=== PATIENT | female | born 1935 | race Caucasian/White ===

== ENCOUNTER 2024-10-26 17:50 | Emergency (ER) | payer MEDICARE, SELFPAY ==
--- OUTSIDE RECORDS SUMMARY | 2010-10-14 07:02 | XMS_ITS | Continuity of Care Document ---
Author Organization [facility] Address [address] [address] [place] [address] Phone Care Team Providers Care Shade Bander Name Role Phone Unavailable Unavailable Unavailable Advance Directives Directive Yes / No Effective Date File Name No Information Encounters Encounter Description Practice Location Reason(s) For Visit Diagnoses Date Provider Providers Copied on Encounter [facility], [address] [address], [place], [place], [id number], [place] tel:[phone] [facility] No Information No Information Family History Family Member Type Diagnosis Age At Onset No Information Payers Payer name Insurance type Covered republican ID Authoriza tion(s) No Information Social History Type Description Quantity Date Captured Comments Sex Female Smoking Status No Information Chief Complaint And Reason For Visit No Information Reason For Referral Reason For Referral No Information History Of Present Illness Encounter Date Complaint History Of Prese nt Illness No Information Functional Status Date Functional Assessmen t No Information Instructions Date Instruction Additional Infor mation No Information Assessments Type Assessment Date No Information Patient Care Teams Name Effective Dates (start - stop) Status Members No Information
--- OUTSIDE RECORDS SUMMARY | 2010-10-14 07:02 | XMS_ITS | Continuity of Care Document ---
Author Organization [facility] Address [address] [address] [place] [address] Phone Care Team Providers Care Kettle Operator Name Role Phone Unavailable Unavailable Unavailable Advance Directives Directive Yes / No Effective Date File Name No Information Encounters Encounter Description Practice Location Reason(s) For Visit Diagnoses Date Provider Providers Copied on Encounter [facility], [address] [address], [place], [place], [id number], [place] tel:[phone] [facility] No Information No Information Family History Family Member Type Diagnosis Age At Onset No Information Payers Payer name Insurance type Covered green party ID Authoriza tion(s) No Information Social History [...]
--- OUTSIDE RECORDS SUMMARY | 2024-10-26 17:52 | XMS_ITS | Encounter Summary ---
Author Organization [facility] Address [address] [facility] [place] [address] Care Team Providers Care Color Mixer Name Role Phone Shay Arteaga MD Primary Care Provider Laz Kennedy MD Primary Care Provider Encounter Details Date Type Department Care Team (Late st Contact Info) Description 12/10/2008 Office Visit-[facility] [address] [facility] [address] [place] [address] Bobby Gardner MD XXX XXX [address] [facility] [address] [place], [place] [id number] Social History Tobacco Use Types Packs/Day Years Used Date Smoking Tobacco: Never Assessed Comments Unknown Sex and Gender Information Value Date Recorded Sex Assigned at Not on file 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 DATE: 12/10/2008 KELSEY ESPANA DATE OF : 1935 AGE: [age] years old Referring Physician: SHAY ARTEAGA Referring Clinic: [facility] CURRENT DIAGNOSES 1. - Shortness of Breath, 786.05 2. - Chest Pain-unspecified, 786.50 3. Hyperlipidemia-mixed disorder, 272.4 4. - Hypertension, 401.1 5. 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 Lantus 100 units/mL, Take as Directed 2. Actos 30 mg, 1 p.o. daily 3. Glipizide 5 mg, 2 p.o. daily 4. Metformin 1000mg, 2 p.o. daily 5. Doxazosin Mesylate 8 mg, 1 p.o. daily 6. Furosemide 40 mg, 1 p.o. daily 7. Simvastatin 80 mg, 1 p.o. daily 8. Fish Oil 1000mg, 1 p.o. daily 9. Carvedilol 25mg, 1 p.o. twice daily 10. Clonidine 0.1 mg, 1 p.o. twice daily 11. Aspirin 81 mg, 1 p.o. daily 12. Fluticasone Propionate (nasal) 50 mcg/act, Take as Directed 13. multivitamin daily, 1 p.o. daily 14. Meclizine Hydrochloride 12.5 mg, Take as Directed 15. Nikko 10-20 mg, 1 p.o. daily CHIEF COMPLAINTS SOB HISTORY OF PRESENT ILLNESS Thank you for asking me to see Kelsey Espana in consultation because of her recent stress nuclear test. The patient informs me that she was seen by one of your associates because you were on vacation. Because of a question of the abnormal nuclear test the patient was arranged to have a visit with me. The patient is a 73-year-old white female who gives a history of remote heart catheterization in the early at [facility]. I have no records of the results of that angiogram butesha apparently was told there was no significant stenosis. She was sent home on the same day according to her. The patient was recently evaluated by you for preoperative clearance for some eyelid surgery. The patient underwent a nuclear stress test and accordingly your partner thought the stress test was abnormal and therefore referred the patient to me for further evaluation. Upon my review of the officialreading of the stress test, there was felt to be a fixed anterior, anteroseptal moderate sized defect with normal wall motion abnormality. It was the impression of the diplomatic interpreter that this fixed defect was probably due to breast attenuation and the study was most likely a normal study. Nevertheless, the patient was sent to me for further evaluation. The patient is a very vague historian. In trying to have her pinpoint specific answers to specific questions, she was very noncommittal. She believes she has had dyspnea on exertion for the last one to two years that has been slowly progressive. She denies any sudden change. She states that she gets short of breath after one block walking. She has also had some problems with PND. She states that she has had some vague chest pain that occursboth at rest and sometimes with exertion. When asked specifically when was the last time she had the discomfort she was unable to tell me. She believes it lasts for only a few seconds to minutes, though it is unclear. She is here with her daughter and her daughter believes that her exercise capacity has decreased in the last year or so, although there has been no acute change. Her daughter statesthat she is not aware of any chest discomfort. The patient has risk factors for coronary artery disease. She is a diabetic and has been treated for high blood pressure that has been somewhat difficult to control. She has also been treated for dyslipidemia. She, however, has been a nonsmoker. Physical exam is as listed below. 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, HTN, Diabetes, obesity, hyperlipidemia Cardiology Procedures-Noninvasive: myocardial perfusion (Nuc) Nov 2008 Left Ventricular Ejection Fraction: EF55% by nuclear study -Nov 2008 Nuclear Results: 11/21/08 a moderately sized, fixed anterior and anteroseptal defect, thought to be due to attenuationartifact SOCIAL HISTORY Alcohol Use - denies drinking; Smoking - never smoked and spot on her lung /second-hand smoke exposure; Diet - regular diet without modifications and caffeine use-1-2 per day; Lifestyle - , children and drives car; Exercise - exercise is limited due to physical disability and MENESES; Seat Belt Use - always; 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 RESPIRATORY dyspnea with exertion, frequent napping CARDIOVASCULAR palpitations, orthopnea, sleeps with 2 pillows, dizziness, edema, hyperlipidemia ABDOMINAL denies ulcer disease, hematochezia or melena. MUSCULOSKELETAL chronic low back pain NEUROLOGICAL dizziness PSYCHIATRIC denies any history of depression, substance abuse or change in cognitive functions. ENDOCRINE insulin dependent diabetes mellitus, polyuria HEMATOLOGICAL/IMMUNOLOGIC seasonal and medication allergies PHYSICAL EXAMINATION VITAL SIGNS: Blood Pressure: 161/70 Sitting, Left arm, large cuff Pulse- 72.00/min. Weight- 209.70 lbs. Height- 66.50 Temperature- .00 CONSTITUTIONAL NAD, alert and oriented SKIN warm and dry HEAD atraumatic EYES EOMI, pupils round and equal, conjunctiva normal ENT tongue midline, no perioral cyanosis NECK supple without JVD/bruit CHEST clear to ascultation without rales/rhonchi/wheezing CARDIAC RRR with I/ murmur, no lift/thrill ABDOMEN obese, soft without tenderness PERIPHERAL PULSES good DP and radials bilaterally EXTREMITIES & BACK 1+ ankle edema PSYCHIATRIC appropriate in answers. NEUROLOGICAL moves extremities equally MEDICATIONS UPDATED/STARTED TODAY: Lantus 100 units/mL, Take as Directed, 0 Actos 30 mg, 1 p.o. daily, 0 Glipizide 5 mg, 2 p.o. daily, 0 Metformin 1000mg, 2 p.o. daily, 0 Doxazosin Mesylate 8 mg, 1 p.o. daily, 0 Furosemide 40 mg, 1 p.o. daily, 0 Simvastatin 80 mg, 1 p.o. daily, 0 Fish Oil 1000mg, 1 p.o. daily, 0 Carvedilol 25mg, 1 p.o. twice daily, 0 Clonidine 0.1 mg, 1 p.o. twice daily, 0 Aspirin 81 mg, 1 p.o. daily, 0 Fluticasone Propionate (nasal) 50 mcg/act, Take as Directed, 0 multivitamin daily, 1 p.o. daily, 0 Meclizine Hydrochloride 12.5 mg, Take as Directed, 0 Nikko 10-20 mg, 1 p.o. daily, #30 MEDICATIONS REFILLED/STOPPED TODAY: Nikko 5-20 mg unsure of dosage 0 Dosage Increased ASSESSMENT/RECOMMENDATION: 1. The patient presents with what she describes as considerable dyspnea although I have no objective evidence of her exercise capacity. Her nuclear stress test suggests uniform coronary perfusion if you assume the anterior fixed defect is due to artifact. The possibility of a prior anterior myocardial infarction or balanced ischemia has not been conclusively ruled out. I did discuss with her the sensitivity and specificity of the nuclear stress test. I have explained to them why a nuclear stress test may not detect global ischemia as there would not be focal perfusion defects. Because of her symptoms I believe it would be worthwhile to do another functional test. I have requested a stress ec hocardiogram. This will allow us to definitively determine her exercise capacity and to make sure there is not balanced ischemia or a prior anterior myocardial infarction. Should the stress echocardiogram be negative, then I believe that further cardiac evaluation would not be necessary. Certainly if the stress echocardiogram shows a large amount of ischemia or suggests multivessel disease, angiography may be needed. It is certainly possible that her dyspnea on exertion is due to deconditioningrather than to coronary artery disease. 2. The patient is hypertensive and has had difficult to control hypertension. We would need to hold her beta-imelda in order to do the stress test. She has hypertension even now without holding her beta-imelda. Because of this, I have asked her to increase her Nikko from 5/20 q.d. to 10/20 q.d. 3. Because of her diabetes mellitus, aggressive control of herlipids is indicated. She should have an LDL cholesterol of less than 70, and HDL greater than 50 ifat all possible. 4. The patient has been a nonsmoker and is encouraged to continue to refrain from s moking. 5. As mentioned above, we will order the stress echocardiogram, and I will see her back to go over the results. 6. The patient did have a carotid ultrasound study. The patient and family werewondering about the carotid study. According to a preliminary report, there was felt to be less than 50% stenosis in the right internal carotid artery and a 50-69% stenosis in the left internal carotid artery. There was tortuosity of the vessel which made interpretation difficult. I did give the results to the patient and told him that this did not suggest significant disease that warrants intervention at this time. Thank you very much for allowing us to participate in the care of your patient. Should you have anyquestions about this patient or any other patient, please feel free to contact us at any time. TODAYS ORDERS 1. Return Visit 1 month 2. Treadmill Stress Echo 2 weeks Bobby Gardner M.D. documented in this encounter Plan of Treatment Not on file documented as of this encounter Visit Diagnoses Not on filedocumented in this encounter Care Teams Color Mixer Relationship Specialty Start Date End Date Shay Arteaga MD PCP - General Family Practice 11/02/11 07/17/19 [place] [address] [place] [address] PCP - General 07/18/19 documented as of this encounter
--- OUTSIDE RECORDS SUMMARY | 2024-10-26 17:52 | XMS_ITS | Clinical Summary ---
Author Organization [facility] Address [address] [place] [address] Care Team Providers Care Water Well Driller Name Role Phone Laz Walter MD Primary Care Provider Allergies Active Allergy Reactions Criticality Noted Date Comments Amoxicillin Rash Low 07/19/2019 Cephalexin 07/19/2019 Blurred vision, tight head and ears plugged Levofloxacin 07/19/2019 Blurred vision, tight head, plugged ears Gemfibrozil 07/19/2019 Penicillin G Benzathine 07/19/2019 Doesn't remember it's been so long Statins 07/19/2019 Sulfa Antibiotics 07/19/2019 Fenofibrate 07/19/2019 Medications albuterol (PROAIR HFA/PROVENTIL HFA/VENTOLIN HFA) 108 (90 Base) MCG/ACT inhaler Inhale 1-2 puffs into the lungs every 4 hours as needed for shortness of breath / dyspnea or wheezing Active amLODIPine (NORVASC) 10 MG tablet Take 10 mg by mouth daily Active aspirin 81 MG EC tablet Take 81 mg by mouth daily Active benzonatate (TESSALON) 100 MG capsule Take 100 mg by mouth 3 times daily as needed for cough Active calcium-vitami n D (OSCAL) 250-125 MG-UNIT TABS per tablet Take 1 tablet by mouth daily Active carvedilol (COREG) 25 MG tablet Take 25 mg by mouth 2 times daily (with meals) Active vitamin D3 (CHOLECALCIFER OL) 2000 units (50 mcg) tablet Take 1 tablet by mouth daily Active Nebulizers (COMP AIR COMPRESSOR NEBULIZER) MISC every 4 hours as needed Active fluocinonide (LIDEX) 0.05 % external solution Active NONFORMULARY 0.01 % Fluocinolone-Showe r cap 0.01% oil 0.1 uses Active furosemide (LASIX) 40 MG tablet Take 40 mg by mouth 2 times daily May reduce to one tablet every morning when leg swelling improves Active glipiZIDE (GLUCOTROL) 10 MG tablet Take 10 mg by mouth 2 times daily (before meals) Active ketoconazole (NIZORAL) 2 % external shampoo 2-3 times weekly. Ac tive insulin glargine (LANTUS PEN) 100 UNIT/ML pen Inject Subcutaneous every morning Inject 62-66 units subcutaneously before breakfast daily. Active lisinopril (ZESTRIL) 40 MG tablet Take 40 mg by mouth daily Active loratadine-pse udoePHEDrine (CLARITIN-D 12-HOUR) 5-120 MG 12 hr tablet Take 1 tablet by mouth daily Active LORazepam (ATIVAN) 0.5 MG tablet Take 0.5 mg by mouth daily as needed for anxiety Active meclizine (ANTIVERT) 12.5 MG tablet Take 12.5 mg by mouth daily as needed for dizziness Active metFORMIN (GLUCOPHAGE) 1000 MG tablet Take 1,000 mg by mouth 2 times daily (with meals) Active mometasone-for moterol (DULERA) 100-5 MCG/ACT inhaler Inhale 2 puffs into the lungs 2 times daily Active multivitamin w/minerals (MULTI-VITAMIN ) tablet Take 1 tablet by mouth daily Active fish oil-omega-3 fatty acids 1000 MG capsule Take 2 g by mouth daily Active sertraline (ZOLOFT) 25 MG tablet Take 25 mg by mouth daily Active simvastatin (ZOCOR) 20 MG tablet Take 20 mg by mouth At Bedtime Active traMADol (ULTRAM) 50 MG tablet Take 50 mg by mouth 3 times daily as needed for severe pain Active triamterene-HC TZ (MAXZIDE-25) 37.5-25 MG tablet Take 1 tablet by mouth daily Active acetaminophen (TYLENOL) 500 MG tabletIndicati ons:S/P ORIF (open reduction internal fixation) fracture Take 2 tablets (1,000 mg) by mouth every 6 hours as needed for mild pain 1 Bottle 0 Active senna (SENOKOT) 8.6 MG tabletIndicati ons:S/P ORIF (open reduction internal fixation) fracture Take 1 tablet by mouth 2 times daily as needed for constipation 40 tablet 0 Active Social History Tobacco Use Types Packs/Day Years Used Date Smoking Tobacco: Never Smokeless Tobacco: Never Alcohol Use Standard Drinks/Week Comments Never 0 (1 standard drink = 0.6 oz pur e alcohol) AUDIT-C Answer Date Recorded Q1: How often do you have a drink containing alc ohol? 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 Gender Identity Not on file Sexual Orientation Not on file Last Filed Vital Signs Vital Sign Reading Time Taken Comments Blood Pressure 162/80 07/20/2019 1:30 PM CDT Pulse 64 07/20/2019 11:15 AM CDT Temperature 36.1 C (96.9 F) 07/20/2019 1:30 PM CDT Respiratory Rate 18 07/20/2019 1:30 PM CDT Oxygen Saturation 97% 07/20/2019 1:30 PM CDT Inhaled Oxygen Concentration - - Weight 88.5 kg (195 lb) 07/20/2019 7:34 AM CDT Height 170.2 cm (5' 7) 07/20/2019 7:34 AM CDT Body Mass Index 30.54 07/20/2019 7:34 AM CDT Plan of Treatment Not on file Medical Devices Implanted Type Area Button Reclaimer Device Identifier Shelf Expiration Date Model / Serial / Lot Graft Bone Chips Canc 05ml Implanted:Qty: 1 on 07/20/2019 by Geoff Fulton MD at [facility] Bone/Tis judith/Biol ogic Left: Wrist MUSCULOSKELETAL HANSON 01/05/2022 [id number] / [id number] / Volar Distal Radius Plate, Intermediate 56mm Implanted:Qty: 1 on 07/20/2019 by Geoff Fulton MD at [facility] Left: Wrist GARRY [id number] / / [id number] 2020 2.7mm Locking Screw 16mm Implanted:Qty: 1 on 07/20/2019 by Geoff Fulton MD at [facility] Left: Wrist GARRY [id number] / / [id number] 2020 2.7mm Locking Screw 20mm Implanted:Qty: 4 on 07/20/2019 by Geoff Fulton MD at [facility] Left: Wrist GARRY [id number] / / [id number] 2020 2.7mm Locking Screws 22mm Implanted:Qty: 2 on 07/20/2019 by Geoff Fulton MD at [facility] Left: Wrist GARRY [id number] / / [id number] 2020 2.7mm Non-Locking Screw 14mm Implanted:Qty: 3 on 07/20/2019 by Geoff Fulton MD at [facility] Left: Wrist GARRY [id number] / / [id number] 2019 1.6 K Wire Implanted:Qty: 4 on 07/20/2019 by Geoff Fulton MD at [facility] Left: Wrist GARRY [id number] / / [id number] 2020 Explanted Type Area Button Reclaimer Device Identifier Shelf Expiration Date Model / Serial / Lot 2.7mm Non-Locking Screw 24mm Explanted:Qty: 1 on 07/20/2019 by Geoff Fulton MD at 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
--- OUTSIDE RECORDS SUMMARY | 2024-10-26 17:52 | XMS_ITS | Encounter Summary ---
Author Organization [facility] Address [address] [facility] [place] [address] Care Team Providers Care Perch Machine Inspector Name Role Phone Laz Walter MD Primary Care Provider Encounter Details Date Type Department Care Team (Late st Contact Info) Description 11/15/2019 Orders Only [facility] [address] [facility] [address] [place] [address] Alexa Manzano MD [address] 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 Gender Identity Not on file Sexual Orientation Not on file documented as of this encounter Plan of Treatment Not on file documented as of this encounter Results * EKG 12-lead, tracing only (02/05/2020 10:59 AM CDT) Interpretation ECG Click View Image link to view waveform and result RADIOLOGY RESULTS 02/05/2020 10:5 9 AM CDT us Alexa Manzano MD ECG ORDERABLES Final Result RADIOLOGY RESULTS documented in this encounter Visit Diagnoses Diagnosis Dyspnea- Primary Other dyspnea and respiratory abnormality Hypoxemia documented in this encounter Care Teams Perch Machine Inspector Relationship Specialty [place] [address] [place] [address] PCP - General 07/18/19 documented as of this encounter
--- OUTSIDE RECORDS SUMMARY | 2024-10-26 17:53 | XMS_ITS | Clinical Summary ---
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 Active CALCIUM CARBONATE/VITAMIN D3 (CALCIUM + D ORAL) Take by mouth once daily. Active cholecalciferol (VITAMIN D) 2,000 unit capsule Take 1 capsule by mouth once daily. Active aspirin enteric coated 81 mg tablet Take 1 tablet by mouth once daily with a meal. 0 02/28/20 13 Active COMP-AIR NEBULIZER COMPRESSOR INHALE EVERY 4 HOURS NEEDED 05/11/19 20 Active albuterol-ipratrop ium (DUONEB) (2.5-0.5 mg) in 3 mL NEBULIZATION solutionIndication s:COPD mixed type (HC),Bronchiectasi s, uncomplicated (HC) Inhale 3 mL via a nebulizer 4 times daily. 1 box 3 11/02/19 20 Active blood-glucose meterIndications:T ype 2 diabetes mellitus with complication, with long-term current use of insulin (HC) please dispense Glucose meter and lancets that are covered by patient's insurance per request of pharmacy. Dispense meter covered by pt ins. Preferred [employer] by insurance. E11.9 NIDDM type II - Test 2 times/day. Reason: Hypoglycemia 1 Each 04/30/19 23 Active fluticasone propion-salmeteroL (ADVAIR) 250-50 mcg/Dose diskus inhalerIndications :COPD mixed type (HC) Inhale 1 Puff by mouth two times daily. 60 Each 04/16/20 24 Active albuterol HFA (PRO-AIR; VENTOLIN; PROVENTIL) 90 mcg/actuation inhalerIndications :COPD mixed type (HC) Inhale 1-2 Puffs by mouth every 4 hours if needed for Shortness Of Breath. 1 Each 2 04/16/20 24 Active amLODIPine (NORVASC) 10 mg tabletIndications: Essential hypertension Take 1 Tablet (10 mg) by mouth once daily. 90 Tablet 3 04/16/20 24 Active blood sugar diagnostic (Blood Glucose Test) stripIndications:T ype 2 diabetes mellitus with complication, with long-term current use of insulin (HC) USE 1 STRIP TO CHECK GLUCOSE TWICE DAILY 200 Each 3 04/16/20 24 Active glipiZIDE (GLUCOTROL) 5 mg tabletIndications: Type 2 diabetes mellitus with complication, with long-term current use of insulin (HC) Take 1 Tablet (5 mg) by mouth once daily before a meal. 90 Tablet 3 04/16/20 24 Active lancetsIndications :Type 2 diabetes mellitus with complication, with long-term current use of insulin (HC) As directed two times daily. 200 Each 04/16/20 24 Active pen needle (bd insulin pen needle uf mini) 31 gauge x 3/16 (disposable insulin pen needle)Indications :Type 2 diabetes mellitus with complication, with long-term current use of insulin (HC) FOR ADMINISTERING INSULIN AT HOME ONCE DAILY. 100 Each 04/16/20 24 Active insulin glargine, U-100, (Lantus Solostar U-100 Insulin) 100 unit/mL (3 mL) penIndications:Typ e 2 diabetes mellitus with complication, with long-term current use of insulin (HC) Inject 40 units subcutaneous once daily. Product desired: LANTUS SOLOSTAR INJECT 30 TO 40 UNITS SUBCUTANEOUSLY ONCE DAILY 45 mL 3 04/16/20 24 Active hydroCHLOROthiazid e 25 mg tabletIndications: Essential hypertension Take 1 Tablet (25 mg) by mouth once daily. 90 Tablet 3 04/16/20 24 Active lisinopriL (PRINIVIL; ZESTRIL) 40 mg tabletIndications: Essential hypertension Take 1 Tablet (40 mg) by mouth once daily. 90 Tablet 3 04/16/20 24 Active metFORMIN (GLUCOPHAGE) 1,000 mg tabletIndications: Type 2 diabetes mellitus with complication, with long-term current use of insulin (HC) Take 1 Tablet (1,000 mg) by mouth two times daily with meals. 180 Tablet 3 04/16/20 24 Active sertraline (ZOLOFT) 25 mg tabletIndications: Anxiety Take 1 Tablet (25 mg) by mouth once daily. 90 Tablet 3 04/16/20 24 Active simvastatin (ZOCOR) 20 mg tabletIndications: Mixed hyperlipidemia Take 1 Tablet (20 mg) by mouth at bedtime. 90 Tablet 3 04/16/20 24 Active carvediloL (COREG) 25 mg tabletIndications: Hypertension TAKE 1 TABLET BY MOUTH TWICE DAILY WITH MEALS 180 Tablet 2 05/04/19 25 Active furosemide 20 mg tabletIndications: Bilateral lower extremity edema TAKE 1 TABLET BY MOUTH EVERY OTHER DAY 45 Tablet 09/15/19 25 Active Active Problems Problem Noted Date Diagnosed Date Depression, recurrent 02/22/2022 Aortic heart murmur 02/18/2021 Overview (02/18/2021): Mild stenosis of aortic valve on Echo 2019 ([facility]) Basal cell carcinoma 06/16/2020 Overview (12/04/2020): 06/12/20 - Nasal dorsum, BCC. Mohs done on 07/21/20. Type 2 diabetes mellitus wit h complication, with long-term current use of insulin 11/04/2019 Peripheral edema 07/09/2019 Bronchiectasis, uncomplicated 02/14/2019 Anxiety 04/21/2018 Obesity 11/02/2017 Solitary pulmonary nodule 11/02/2017 Overview (05/30/2018): Negative PET 11/2017. Diabetic peripheral neuropathy 07/26/2017 Chronic nasal congestion 02/11/2017 COPD mixed type 03/21/2016 Overview (03/21/2016): Spirometry through palletizer operator: 02/2016: FVC: FVC 50% at 3.02. FEV1 at 44% at 2.26 L Essential hypertension 06/26/2009 Hyperlipidemia 06/26/2009 Resolved Problems Problem Noted Date Diagnosed Date Resolved Date Pressure injury of right buttock, stage 2 06/22/2021 09/07/2022 Skin cancer of nose 09/27/2017 10/16/19 21 Shortness of breath 12/24/2015 04/13/20 19 CVD (cardiovascular disease) 10/07/2009 06/06/2013 Type II diabetes mellitus with complication 06/26/2009 11/04/2019 Routine health maintenance 06/26/2009 0 04/21/2018 Overview (06/26/2009): Last Breast Exam: 11/2008 Last Mammogram: 10/2008 Last Lipids: 02/2009 Last Colonoscopy: 11/1999 Encounters Date Type Department Care Team Description 10/25/[address] [id number] Laz Walter MD Refill Request (Furosemide) 09/13/[address] [address] Laz Walter MD Refill Request (Furosemide) from Last 3 Months Immunizations Immunization Administration Dates Next Due AMB Influenza, IIV4 PF (=>6 mos Flulaval,Fluzone Fluarix)(Flu Clinic Only) 01/23/2020 COVID-19 vaccine (Moderna 10 0mcg/0.5mL) PF, MDV 07/17/2021 COVID-19 vaccine (Pfizer-Bio NTech 30mcg/0.3mL) PF, MDV 01/21/2021,06/17/2020,05/27/2020 Influenza A (H1N1), Inactiva john (Age >=3 Years) 04/30/2009 Influenza, High-dose Inactivated 02/09/2016,01/16 Influenza, High-dose Quadriv alent Inactivated 01/07/2023,01/20/2022,01/21/2021 Influenza, IIV3 (Age >=3 years) 02/03/2011,01/06 Influenza, Inactivated IIV3 (Age 65+ Years) Preserv Free 02/01/2019,02/13/2018,01/06/2017 Pneumococcal Poly,23-Valent (Pneumovax) 07/18/19,11/16/2002,08/10/2000 Pneumococcal conj 13-Valent (Prevnar 13) 015 RSV, Recombinant ADJ Reconst ituted (Arexvy 120MCG/0.5mL) 01/07/2023 Td (Age >=7 Years) 11/16/2002 Tdap 11/11/2022,11/29/2012 Zoster (Shingrix-RZV, recombinant) 04/05/2022, Family History Medical History Relation Name Comments Diabetes Brother 1 Other Brother 2 alzheimers No Known Problems Brother 3 No Known Problems Brother 4 Other Father lung Other Mother old age Diabetes Sister Relation Name Status Comments Brother 1 Brother 2 Brother 3 Alive Brother 4 Alive Father (Age 67) Mother (Age 95) Sister Social History Tobacco Use Types Packs/Day Years Used Date Smoking Tobacco: Never Smokeless Tobacco: Never Tobacco Cessation:Counseling Given: Yes Alcohol Use Standard Drinks/Week Comments No 0 (1 standard drink = 0.6 oz pur e alcohol) PHQ-2 Answer Date Recorded PHQ-2 TOTAL SCORE 1 04/16/2024 Social Connections Answer Date Recorded Do you often feel lonely or isolated from those around you? 0 04/16/2024 Financial Resource Strain Answer Date R ecorded Difficulty of Paying Living Expenses 3 04/16/2024 Difficulty of Paying Living Expenses Not on file 04/16/2024 Food Insecurity Answer Date Recorded Do you worry your food will run out before you are able to buy more? 1 04/16/2024 Transportation Needs Answer Date Record ed Does lack of transportation keep you from medica l appointments? 1 04/16/2024 Does lack of transportation keep you from work, meetings or getting things that you need? 1 04/16/2024 Housing Stability Answer Date Recorded What is your housing situation today? 1 04/16/2024 Utilities Answer Date Recorded Do you have trouble paying f or utilities (for example, heat, electricity, water, phone)? 1 04/16/2024 Comments No Sex and Gender Information Value Date Recorded Sex Assigned at Not on file Legal Sex Female 7:43 AM BRANDING MACHINE TENDER Gender Identity Not on file Sexual Orientation Not on file Occupation Industry Job Start Date Job End Date retired Not on file Not on file Not on file Obstetrics History Last Filed Vital Signs Vital Sign Reading Time Taken Comments Blood Pressure 130/68 04/16/2024 10:47 AM BRANDING MACHINE TENDER Pulse 80 04/16/2024 10:07 AM BRANDING MACHINE TENDER Temperature 36.3 C (97.3 F) 04/07/2024 3:06 PM BRANDING MACHINE TENDER Respiratory Rate 18 04/07/2024 3:06 PM BRANDING MACHINE TENDER Oxygen Saturation 94% 04/07/2024 3:06 PM BRANDING MACHINE TENDER Inhaled Oxygen Concentration - - Weight 77.1 kg (170 lb) 04/16/2024 10:07 AM BRANDING MACHINE TENDER Height 170.2 cm (5' 7) 04/16/2024 10:07 AM BRANDING MACHINE TENDER Body Mass Index 26.63 04/16/2024 10:07 AM BRANDING MACHINE TENDER Plan of Treatment Health Maintenance Due Date Last Done Comments COVID-19 vaccine series ( season) 2024 01/02/2024, 01/28/2023, 01/20/2022, Additional history exists Influenza Vaccine (#1) 2024 , 02/01/2019, 02/13/2018, Additional history exists BMI (ht and wt on same day) for age 18+ 04/16/2025 04/16/2024, 02/23/2023, 02/22/2022, Additional history exists Depression screening for age 12+ 04/16/2025 04/16/2024, 02/23/2023, 02/23/2022, Additional history exists Medicare Wellness for age 65+ 04/17/2025 04/16/2024, 02/23/2023, 02/22/2022, Additional history exists Tetanus booster 11/11/2032 11/11/2022, 11/16, 11/16/2002 DEXA/DXA scan for age 65+ Completed 2016, 05/09/2014, 04/05/2011, Additional history exists Pneumococcal series for age 50+ Completed 07/17/2021, 02/03/2015, 11/16/2002, Additional history exists Zoster (shingles) series for age 50+ Completed 04/05/2022, 01/30/2022 RSV vaccine for adults or Completed 01/07/2023 Hepatitis B series for 19+ Aged Out N o longer eligible based on patient's age to complete this topic Procedures Procedure Name Priority Date/Time Associated Diagnosis Comments XR DXA BONE DENSITY 2 SITES AXIAL Routine 03/15/2017 10:44 AM BRANDING MACHINE TENDER Osteoporosis, unspecified osteoporosis type, unspecified pathological fracture presence from Last 3 Months or Most Recently Relevant to Health Maintenance Results * XR DXA BONE DENSITY 2 SITES AXIAL (03/15/2017 10:44 AM BRANDING MACHINE TENDER) Anatomical Region Laterality Modality Spine, HIPS, HIPL, HIPR Other 03/15/2017 10:4 4 AM BRANDING MACHINE TENDER Impressions 03/15/2017 1:08 PM BRANDING MACHINE TENDER IMPRESSION: 1. Normal bone mineral density of the lumbar spine. 2. Normal bone mineral density of the right and left femoral necks. RECOMMENDATIONS: Typical preventive recommendations include total daily calcium intake (diet and supplement) of 1500 mg, daily vitamin D intake of 400-800 IU, and regular weight-bearing exercise, in the appropriate clinical setting. Narrative 03/15/2017 1:08 PM BRANDING MACHINE TENDER BONE DENSITY (DEXA) 03/15/2017 10:44 AM HISTORY: Postmenopausal female with history of asthma or emphysema taking calcium. COMPARISON: 05/09/2014 and 11/09/2002. TECHNIQUE: The study was performed using DEXA in the AP lumbar spine and AP femur using a [employer] C. FINDINGS: Using DEXA, the results were reported according to T score. The T score is the standard deviation from the peak bone mass in a normal young patient. A T score of 0 to -1.0 is normal. A T score of -1.0 to -2.5 correlates with osteopenia. A T score of less than -2.5 correlates with osteoporosis. The total T-score from L1 to L4 is 0.1 compared with -0.3 in the previous study and -1.2 in the baseline study. There has been a 3.6% change in bone density since the previous study. This is a statistically significant change in bone density. The T-score for the right femoral neck is -0.2. The bone mineral density of the right femoral neck is 0.828 g/cm2. The T-score for the left femoral neck is -0.5 compared with -0.7 in the previous study and -1.6 in the baseline study. The bone mineral density of the left femoral neck is 0.789 g/cm2. Procedure Note Unknown, Doctor - 03/15/2017 BONE DENSITY (DEXA) 03/15/2017 10:44 AM HISTORY: Postmenopausal female with history of asthma or emphysema taking calcium. COMPARISON: 05/09/2014 and 11/09/2002. TECHNIQUE: The study was performed using DEXA in the AP lumbar spine and AP femur using a [employer] C. FINDINGS: Using DEXA, the results were reported according to T score. The T score is the standard deviation from the peak bone mass in a normal young patient. A T score of 0 to -1.0 is normal. A T score of -1.0 to -2.5 correlates with osteopenia. A T score of less than -2.5 correlates with osteoporosis. The total T-score from L1 to L4 is 0.1 compared with -0.3 in the previous study and -1.2 in the baseline study. There has been a 3.6% change in bone density since the previous study. This is a statistically significant change in bone density. The T-score for the right femoral neck is -0.2. The bone mineral density of the right femoral neck is 0.828 g/cm2. The T-score for the left femoral neck is -0.5 compared with -0.7 in the previous study and -1.6 in the baseline study. The bone mineral density of the left femoral neck is 0.789 g/cm2. IMPRESSION: IMPRESSION: 1. Normal bone mineral density of the lumbar spine. 2. Normal bone mineral density of the right and left femoral necks. RECOMMENDATIONS: Typical preventive recommendations include total daily calcium intake (diet and supplement) of 1500 mg, daily vitamin D intake of 400-800 IU, and regular weight-bearing exercise, in the appropriate clinical setting. us Coleman Addi Luh MD DEXA Final Result from Last 3 Months or Most Recently Relevant to Health Maintenance Insurance [facility] MR Care Teams Aircraft Cleaning Supervisor Relationship Specialty [place] [id number] [place] [address] PCP - General Family Practice 02/13/18
--- NOTE | 2024-10-26 18:01 | PC.NURSE ---
code stroke cancelled, BS 27
[2024-10-26] MEDS: DEXTROSE 50 % SYRINGE IVP ×2 (18:03→18:04)
[2024-10-26 18:05] VITALS: BP 174/85; PULSE 62; RESP 28; TEMP 35.8; O2SAT 86
[2024-10-26 18:06] VITALS: O2SAT 86
[2024-10-26] MEDS: 5 % DEXTROSE/0.45% SOD CHLOR 1,000 ML 150 ML IV (18:10)
[2024-10-26 18:19] LABS: Hematocrit 38.4 % (33.0-51.0); Hemoglobin* 12.0 gm/dL (12.0-16.0); Immature Granulocytes Abs Auto 0.01 K/uL (0.00-0.30); Immature Granulocytes Pct Auto 0.1 %; Mean Corpuscular HGB Conc 31 gm/dL (32-36); Mean Corpuscular Hemoglobin 27 pg (26-34); Mean Corpuscular Volume 87 fL (80-100); RDW Coefficient of Variation % 12.2 % (11.5-15.5); Red Blood Count 4.44 m/uL (4.00-5.20); White Blood Count* 10.12 K/uL (4.50-11.00)
[2024-10-26 18:23] LABS: Chloride* 92 mmol/L (96-114); Lymphocytes Absolute Auto 1.20 K/uL (0.90-2.90); Slide Review Reflex No
[2024-10-26 18:24] LABS: Sodium* 135 mmol/L (135-149)
[2024-10-26 18:26] LABS: Blood Urea Nitrogen* 19 mg/dL (7-30); Creatinine* 1.0 mg/dL (0.5-1.5); Estimated Glomerular Filt Rate 54 ml/min
[2024-10-26 18:27] LABS: Anion Gap 4 mEq/L (7-15); Calcium* 9.4 mg/dL (8.4-10.6); Carbon Dioxide* 39 mmol/L (20-32)
[2024-10-26 18:34] LABS: Ethanol* < 0.01 % (0.01-0.03)
[2024-10-26 18:35] LABS: Glucose* 27 mg/dL (60-115); Potassium* 2.9 mmol/L (3.6-5.1)
--- NOTE | 2024-10-26 19:16 | ED.AMS ---
HPI - Altered Mental Status General Date Seen: 10/26/24 Chief Complaint: Diabetic Related Problem Stated Complaint: Stroke Time Seen by Provider: 10/26/24 17:58 Source: patient, family, RN notes reviewed and old records reviewed Mode of arrival: wheelchair Limitations: altered mental status History of Present Illness HPI narrative: Patient is an 89-year-old female who was brought the ER by her cuff, after [place], she was able to walk out of the casino with her walker, but she was not all talking to her , he then got her in the car he said he she was unable to even put her seatbelt on. The then drove to [employer], you ordered food, through the drive-through and put the chicken nuggets rate on her lap, but she did not eat these. He then became somewhat concerned, and drove her here to the emergency room in [place]. For an assessment. He tells me before this happened she did not have any nausea any vomiting there is no diaphoresis no complaints of chest pain, she is not taking any drugs or alcohol. She is however a diabetic on insulin. This started 2 hours ago. MD complaint: altered mental status Onset (ago): hour(s) Timing confirmed by: spouse Severity: severe Related Data Home Medications ?Medication ?Instructions ?Recorded ?Confirmed albuterol sulfate 90 mcg/actuation 1 - 2 puff inhalation Q4H PRN 10/26/24 10/26/24 aerosol inhaler dyspnea amlodipine 10 mg tablet 10 mg PO DAILY 10/26/24 10/26/24 blood sugar diagnostic (OneTouch 10/26/24 10/26/24 Verio test strips) carvedilol 25 mg tablet 25 mg PO BID 10/26/24 10/26/24 fluticasone 250 mcg-salmeterol 50 inhalation BID 10/26/24 mcg/dose blistr powdr for inhalation furosemide 20 mg tablet 20 mg PO Q1D 10/26/24 10/26/24 glipizide 5 mg tablet 5 mg PO DAILY 10/26/24 10/26/24 hydrochlorothiazide 25 mg tablet 25 mg PO DAILY 10/26/24 10/26/24 insulin glargine 100 unit/mL (3 30 - 40 unit subcut DAILY 07/11/25 07/11/25 mL) subcutaneous pen (Lantus Solostar U-100 Insulin) lancets 33 gauge (OneTouch Delica 10/26/24 10/26/24 Plus Lancet) lisinopril 40 mg tablet 40 mg PO DAILY 10/26/24 10/26/24 metformin 1,000 mg tablet 1,000 mg PO BID 10/26/24 10/26/24 sertraline 25 mg tablet 25 mg PO DAILY 10/26/24 10/26/24 simvastatin 20 mg tablet 20 mg PO QPM 10/26/24 10/26/24 Allergies Allergy/AdvReac Type Severity Reaction Status Date / Time amoxicillin Allergy Verified 10/26/24 20:23 cephalexin Allergy Verified 10/26/24 20:23 fenofibrate (From Tricor) Allergy Verified 10/26/24 20:23 gemfibrozil (From Lopid) Allergy Verified 10/26/24 20:23 levofloxacin Allergy Verified 10/26/24 20:23 Penicillins Allergy Verified 10/26/24 20:23 Oiulzen-FOM-DzD Reductase Allergy Verified 10/26/24 20:23 Inhibitor Sulfa (Sulfonamide Allergy Verified 10/26/24 20:23 Antibiotics) Review of Systems Status of ROS: Reports: unobtainable due to medical condition and unobtainable due to mental status PFSH PFS Social History Smoking Status: Unknown if ever smoked Exam Narrative: Exam Narrative: She is seen initially in stabilization room 1, stroke code was called, she is responsive at all, she withdraws bilaterally to pain however in all her extremities. I do not see a facial droop, but she is edentulous. Her pupils are equal round midposition and reactive to light, her neck is supple there is no stiffness, chest is good air entry bilaterally no wheezing crackles noted her heart sounds are normal no clicks murmurs or gallops her abdomen is soft there is no guarding she is log-rolled, there is no evidence of any injury over her back, bruising wounds. Of any sort no tenderness to or lease eliciting any tenderness to her thoracic or lumbar region she moves her extremities and withdraws to pain on the lower extremities no evidence of injury noted. Blood glucose is immediately got. This returned at 27. She then received D50 x2, is now alert oriented and communicating. Const: Vital Signs, click to edit/add: Vital Signs - 24 hr 10/26/24 18:05 10/26/24 18:06 Temperature 96.5 F L Pulse Rate [Pulse Oximeter] 62 Respiratory Rate 28 H Blood Pressure [Le ft Upper Arm] 174/85 H Pulse Oximetry 86 L 86 L Oxygen Delivery Me thod Nasal Cannula Oxygen Flow Rate 3 Documenting provider has reviewed patient's vital signs: yes Course Reevaluation(s) Time of Reevaluation #1: 20:45 Reevaluation #1: I went in to see the patient with the nurse, she had some concerns about her swelling which she was able to swallow pudding, she did tell me that she has been having for a while problems with swallowing, she is on chronic oxygen, follows up with a doctor in [place] I was able to review her note in epic, there is some memory issues problems with mobility, she did not have any noted issues with hypoglycemia, but her feels that she is now back to baseline, if we can do a road test I think it is reasonable let her go home, I will give her prescription for some potassium pills. As she was a low potassium here and this should be followed up next week with primary physician. Vital Signs Vital signs: Initial Vital Signs Temperature 96.5 F L 10/26/24 18:05 Temperature Source Temporal Artery Scan 10/26/24 18:05 Pulse Rate 62 10/26/24 18:05 Respiratory Rate 28 H 10/26/24 18:05 Blood Pressure 174/85 H 10/26/24 18:05 Blood Pressure Mean 114 H 10/26/24 18:05 Blood Pressure Position Supine 10/26/24 18:05 Pulse Oximetry 86 L 10/26/24 18:05 Oxygen Delivery Method Nasal Cannula 10/26/24 18:05 Oxygen Flow Rate 3 10/26/24 18:05 Vital Signs Temperature 96.5 F L 10/26/24 18:05 Pulse Rate 62 10/26/24 18:05 Respiratory Rate 28 H 10/26/24 18:05 Blood Pressure 174/85 H 10/26/24 18:05 Pulse Oximetry 86 L 10/26/24 18:05 Oxygen Delivery Method Nasal Cannula 10/26/24 18:05 Oxygen Flow Rate 3 10/26/24 18:05 Temperature 96.5 F L 10/26/24 18:05 Pulse Rate 62 10/26/24 18:05 Respiratory Rate 28 H 10/26/24 18:05 Blood Pressure 174/85 H 10/26/24 18:05 Pulse Oximetry 86 L 10/26/24 18:06 Oxygen Delivery Method Nasal Cannula 10/26/24 18:05 Oxygen Flow Rate 3 10/26/24 18:05 Medications Administered Medications: Generic Name Dose Route Start Last Admin Trade Name Freq PRN Reason Stop Dose Admin Sodium Chloride 1,000 mls @ 125 mls/hr 10/26/24 18:07 10/26/24 20:05 0.9 % Sodium Chloride 1000 Ml IV 125 mls/hr .Q8H IMMANUEL Administration Discontinued Medications Generic Name Dose Route Start Last Admin Trade Name Freq PRN Reason Stop Dose Admin Dextrose 25 gm 10/26/24 18:06 10/26/24 18:03 Dextrose 50 % Syringe IVP 10/26/24 18:07 25 gm ONCE ONE Administration Dextrose 25 gm 10/26/24 18:09 10/26/24 18:04 Dextrose 50 % Syringe IVP 10/26/24 18:10 25 gm ONCE ONE Administration Dextrose/Sodium Chloride 1,000 mls @ 125 mls/hr 10/26/24 18:08 10/26/24 18:10 5 % Dextrose/0.45% Sod Chlor IV 150 mls/hr .Q8H IMMANUEL Administration Potassium Chloride 10 meq in 100 mls @ 100 mls/hr 10/26/24 18:52 10/26/24 19:45 Potassium Chloride IVPB 10/26/24 19:51 100 mls/hr ONCE ONE Administration Potassium Chloride 40 meq 10/26/24 18:52 10/26/24 19:53 Potassium Chloride 10 Meq Capsule Er PO 10/26/24 18:53 40 meq ONCE ONE Administration MDM - Altered Mental Status MDM Narrative Medical decision making narrative: Multiple differential diagnoses were considered for altered mental status. The life-threatening differential diagnosis considered include: Meningitis/encephalitis, bacteremia, subdural, cerebrovascular accident, SAH, and hypertensive encephalopathy. Other differential diagnosis included include medication effect, hypoxia, hypoglycemia, hypercalcemia, hypo or hypernatremia, hypothyroidism, hepatic encephalopathy, carbon monoxide poisoning, UTI, pneumonia, depression, seizure, as well as other etiologies. This clearly is hypoglycemia, we will feed her, ensure that she is improving, I do not think she needs a head CT but we will do some labs on her. And give her some fluids her pat test him did come back slightly low at 2.9, I no idea what her chronic status is. As she is followed by [facility]. Differential Diagnosis Differential diagnosis: Likely alcoholic intoxication, altered mental status, delirium, dementia, hypoglycemia, hyponatremia, subarachnoid hemorrhage and sepsis Medical Records Attestation: I reviewed the patient's medical records. Lab Data Attestation: I reviewed the patient's lab results. Labs: Lab Results 10/26/24 Range/Units 17:56 WBC 10.12 (4.50-11.00) K/uL RBC 4.44 (4.00-5.20) m/uL Hgb 12.0 (12.0-16.0) gm/dL Hct 38.4 (33.0-51.0) % MCV 87 (80-100) fL MCH 27 (26-34) pg MCHC 31 L (32-36) gm/dL RDW Coeff of Faisal 12.2 (11.5-15.5) % Plt Count 293 (140-440) K/uL Neut % (Auto) 79.1 H (42.0-72.0) % Lymph % (Auto) 12.3 L (20-44) % Elliott % (Auto) 8.1 (0.0-11.0) % Eos % (Auto) 0.0 (0.0-7.0) % Baso % (Auto) 0.4 (0.0-3.0) % Neut # (Auto) 8.00 H (1.7-7.0) K/uL Lymph # (Auto) 1.20 (0.90-2.90) K/uL Elliott # (Auto) 0.80 (0.00-0.90) K/UL Eos # (Auto) 0.00 (0.00-0.50) K/uL Baso # (Auto) 0.04 (0.00-0.30) K/uL Abs Immat Gran (auto) 0.01 (0.00-0.30) K/uL Imm/Tot Granulo (auto) 0.1 % Sodium 135 (135-149) mmol/L Potassium 2.9 L* (3.6-5.1) mmol/L Chloride 92 L (96-114) mmol/L Carbon Dioxide 39 H (20-32) mmol/L Anion Gap 4 L (7-15) mEq/L BUN 19 (7-30) mg/dL Creatinine 1.0 (0.5-1.5) mg/dL Estimated GFR 54 ml/min Glucose 27 L* (60-115) mg/dL Calcium 9.4 (8.4-10.6) mg/dL Ethyl Alcohol < 0.01 (0.01-0.03) % ECG Data Attestation: I personally reviewed and interpreted this ECG as follows: ECG interpretation date: 10/26/24 Prior ECG tracings: not available for review Interpretation: EKG shows normal sinus rhythm, right bundle-branch block, no acute ST wave changes. QRS 120 milliseconds, QT 474 QTC 519 Discharge Plan Discharge Clinical Impression: Hypoglycemia associated with diabetes, Hypokalemia, Alteration consciousness, Difficulty swallowing, COPD (chronic obstructive pulmonary disease) Patient Disposition: Home w/ Parent or Adult Condition: Improved Instructions: Hypokalemia (ED), Hypoglycemia in a Person with Diabetes (DC), COPD (Chronic Obstructive Pulmonary Disease) (ED), COPD (Chronic Obstructive Pulmonary Disease) (DC), How to Use a Nebulizer (ED), Dysphagia (ED), Barium Swallow (DC) Prescriptions: No Action fluticasone propion-salmeterol 250-50 mcg/dose blister with device INHALATION BID carvedilol 25 mg tablet 25 mg PO BID (DME) 8020select Verio test strips Strip 1 strip MISCELLANEOUS BID amlodipine 10 mg tablet 10 mg PO DAILY simvastatin 20 mg tablet 20 mg PO QPM metformin 1,000 mg tablet 1,000 mg PO BID sertraline 25 mg tablet 25 mg PO DAILY hydrochlorothiazide 25 mg tablet 25 mg PO DAILY furosemide 20 mg tablet 20 mg PO Q1D albuterol sulfate 90 mcg/actuation HFA aerosol inhaler 1 - 2 puff INHALATION Q4H PRN (Reason: dyspnea) lisinopril 40 mg tablet 40 mg PO DAILY glipizide 5 mg tablet 5 mg PO DAILY insulin glargine [Lantus Solostar U-100 Insulin] 100 unit/mL (3 mL) insulin pen 30 - 40 unit subcut DAILY (DME) lancets [SubtechTouch Delica Plus Lancet] 33 gauge misc MISCELLANEOUS BID Follow Up/Referrals: Provider,Not a Local [Primary Care Provider, Family Practice] Stand Alone Forms: MyHealth Info Instructions
[2024-10-26] MEDS: POTASSIUM CHLORIDE 10 MEQ/100 ML PIGGYBACK 100 MEQ IVPB (19:45)
[2024-10-26] MEDS: POTASSIUM CHLORIDE 10 MEQ CAPSULE ER 40 MEQ PO (19:53)
--- NOTE | 2024-10-26 20:10 | PC.NURSE ---
pt having difficulty swallowing pills, tried some pudding and pt coughing and had to spit it out, spitting out phlegm, per pt more than normal, pt unable to recall how much insulin she took today, looks to her with questions asked, unable to recall if blood sugar was checked today
--- NOTE | 2024-10-26 20:50 | PC.NURSE ---
walked to bathroom with assist and walker, pt is steady with use of walker, wishes to discharge home
== END 2024-10-26 21:30 | disposition home or self-care (01) ==
PROVIDERS: Emergency Provider Family Medicine
DX: E11.65 Type 2 diabetes mellitus with hyperglycemia (principal); J44.9 Chronic obstructive pulmonary disease, unspecified; E87.6 Hypokalemia; R13.10 Dysphagia, unspecified
CPT/HCPCS: 36415; 80048; 81001; 82077; 82962; 84484; 85025; 93005; 94761; 96365; 99285; 99291; A9270; J3480; J7030; S5010

== ENCOUNTER 2024-12-07 12:30 | Outpatient (CLI) | payer MEDICARE, SELFPAY | END 2024-12-07 12:31 | disposition home or self-care (01) | PROVIDERS: Visit Provider Family Medicine | DX: R42 Dizziness and giddiness (principal); I95.9 Hypotension, unspecified | CPT/HCPCS: A0425; A0427 ==

== ENCOUNTER 2024-12-07 13:05 | Emergency (ER) | payer MEDICARE, SELFPAY ==
[2024-12-07] VITALS (17 sets, daily range): BP systolic 140–190; BP diastolic 55–102; PULSE 51–64; RESP 7–30; TEMP 36.4; O2SAT 91–99; BMI 26.6
--- OUTSIDE RECORDS SUMMARY | 2024-12-07 13:08 | XMS_ITS | Clinical Summary ---
Author Organization [facility] Address [address] [facility] 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 Gender Identity Not on file Sexual Orientation [...] on file Medical Devices Implanted Type Area Edging Machine Operator Device Identifier Shelf Expiration Date Model / Serial / Lot Graft Bone Chips Canc 05ml Implanted:Qty: 1 on 07/20/2019 by Geoff Fulton MD at [facility] Bone/Tis judith/Biol ogic Left: Wrist MUSCULOSKELETAL HANSON 01/05/2022 [id number] / [id number] / Volar Distal Radius Plate, Intermediate 56mm Implanted:Qty: 1 on 07/20/2019 by Geoff Fulton MD at [facility] Left: Wrist GARRY [id number] / / [id number] 2020 2.7mm Locking Screw 16mm Implanted:Qty: 1 on 07/20/2019 by Geoff Fulton MD at [facility] Left: Wrist GARRY [id number] / / [id number] 2020 2.7mm Locking Screw 20mm Implanted:Qty: 4 on 07/20/2019 by Geoff Fulton MD at [facility] Left: Wrist GARRY [id number] / / [id number] 2020 2.7mm Locking Screws 22mm Implanted:Qty: 2 on 07/20/2019 by Geoff Fulton MD at [facility] Left: Wrist GARRY [id number] / / [id number] 2020 2.7mm Non-Locking Screw 14mm Implanted:Qty: 3 on 07/20/2019 by Geoff Fulton MD at [facility] Left: Wrist GARRY [id number] / / [id number] 2019 1.6 K Wire Implanted:Qty: 4 on 07/20/2019 by Geoff Fulton MD at [facility] Left: Wrist GARRY [id number] / / [id number] 2020 Explanted Type Area Edging Machine Operator Device Identifier Shelf Expiration Date Model / Serial / Lot 2.7mm Non-Locking Screw 24mm Explanted:Qty: 1 on 07/20/2019 by Geoff Fulton MD at [facility] Left: Wrist GARRY [id number] / / [id number] 20 Insurance [employer] MEDICARE Advance Directives For more information, please contact: [phone] Documents on File Type Date Recorded 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
--- OUTSIDE RECORDS SUMMARY | 2024-12-07 13:08 | XMS_ITS | Encounter Summary ---
Author Organization [facility] Address [address] [place] [address] Care Team Providers Care Family Intervention Specialist Name Role Phone Shay Arteaga MD Primary Care Provider Laz Kennedy MD Primary Care Provider Encounter Details Date Type Department Care Team (Late st Contact Info) Description 12/10/2008 Office Visit-[facility] [place] [address] [place] [address] Bobby Gardner MD XXX XXX [address] [facility] [facility] [address] [place], [place] [id number] Social History Tobacco Use Types Packs/Day Years Used Date Smoking Tobacco: Never Assessed Comments Unknown Sex and Gender Information Value Date Recorded Sex Assigned at Not on file 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 DATE: 12/10/2008 KELSEY ESPANA DATE OF : 1935 AGE: [age] years old Referring Physician: SHAY ARTEAGA Referring Clinic: [facility] CURRENT DIAGNOSES 1. - Shortness of Breath, [...] remote heart catheterization in the early at [facility]. I have no records of the results [...] abnormality. 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
--- OUTSIDE RECORDS SUMMARY | 2024-12-07 13:08 | XMS_ITS | Encounter Summary ---
Author Organization [facility] Address [address] [facility]. 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
--- OUTSIDE RECORDS SUMMARY | 2024-12-07 13:08 | XMS_ITS | Clinical Summary ---
Author Organization [employer] [facility] Address [address] [place] [address] Care Team Providers Care Tile Burner Name Role Phone Laz Walter MD Primary Care Provider [facility] [place] Unavailable [phone] Allergies Active Allergy Reactions Criticality Noted Date Comments Amoxicillin Rash 06/26/2009 Cephalexin Other - Describe In Comment Field 06/26/2009 Blurred vision, tight head and ears plugged Levofloxacin Other - Describe In Comment Field 06/26/2009 Blurred vision, tight head and ears plugged Gemfibrozil 10/14/2010 Penicillin G Benzathin,Procain 06/26/2009 Xgwtmpz-Nyv-Hct Reductase Inhibitors 10/14/2010 Sulfa (Sulfonamide Antibiotics) 06/26/2009 Fenofibrate 10/14/2010 Medications MULTIVITAMINS (MULTIVITAMIN ORAL) Take by mouth once daily. Active cholecalciferol (VITAMIN D) 2,000 unit capsule Take 1 capsule by mouth once daily. Active aspirin enteric coated 81 mg tablet Take 1 tablet by mouth once daily with a meal. 0 02/28/20 13 Active fluticasone propion-salmetero L (ADVAIR) 250-50 mcg/Dose diskus inhalerIndication s:COPD mixed type (HC) Inhale 1 Puff by mouth two times daily. 60 Each 11 04/16/20 24 Active albuterol HFA (PRO-AIR; VENTOLIN; PROVENTIL) 90 mcg/actuation inhalerIndication s:COPD mixed type (HC) Inhale 1-2 Puffs by mouth every 4 hours if needed for Shortness Of Breath. 1 Each 2 04/16/20 24 Active lancetsIndication s:Type 2 diabetes mellitus with complication, with long-term current use of insulin (HC) As directed two times daily. 200 Each 3 04/16/20 24 Active pen needle (bd insulin pen needle uf mini) 31 gauge x 3/16 (disposable insulin pen needle)Indication s:Type 2 diabetes mellitus with complication, with long-term current use of insulin (HC) FOR ADMINISTERING INSULIN AT HOME ONCE DAILY. 100 Each 3 04/16/20 Active hydroCHLOROthiazi de 25 mg tabletIndications :Essential hypertension Take 1 Tablet (25 mg) by mouth once daily. 90 Tablet 3 04/16/20 24 Active lisinopriL (PRINIVIL; ZESTRIL) 40 mg tabletIndications :Essential hypertension Take 1 Tablet (40 mg) by mouth once daily. 90 Tablet 3 04/16/20 24 Active metFORMIN (GLUCOPHAGE) 1,000 mg tabletIndications :Type 2 diabetes mellitus with complication, with long-term current use of insulin (HC) Take 1 Tablet (1,000 mg) by mouth two times daily with meals. 180 Tablet 3 04/16/20 24 Active sertraline (ZOLOFT) 25 mg tabletIndications :Anxiety Take 1 Tablet (25 mg) by mouth once daily. 90 Tablet 3 04/16/20 24 Active simvastatin (ZOCOR) 20 mg tabletIndications :Mixed hyperlipidemia Take 1 Tablet (20 mg) by mouth at bedtime. 90 Tablet 3 04/16/20 24 Active carvediloL (COREG) 25 mg tabletIndications :Hypertension TAKE 1 TABLET BY MOUTH TWICE DAILY WITH MEALS 180 Tablet 2 05/04/19 Active blood sugar diagnostic (Blood Glucose Test) stripIndications: Type 2 diabetes mellitus with complication, with long-term current use of insulin (HC) USE 1 STRIP TO CHECK GLUCOSE TWICE DAILY 200 Each 3 11/02/19 25 Active blood-glucose meterIndications: Type 2 diabetes mellitus with complication, with long-term current use of insulin (HC) please dispense Glucose meter and lancets that are covered by patient's insurance per request of pharmacy. Dispense meter covered by pt ins. Preferred ascensia by insurance. E11.9 NIDDM type II - Test 2 times/day. Reason: Hypoglycemia 1 Each 11/02/19 Active blood-glucose meterIndications: Type 2 diabetes mellitus with complication, with long-term current use of insulin (HC) Dispense meter covered by pts insurance - Accu-chek Guide meter 1 Each 11/01/19 25 Active lancetsIndication s:Type 2 diabetes mellitus with complication, with long-term current use of insulin (HC) As directed 1 Strip once daily. Test 1 times per day. 100 Each 11/01/19 25 Active blood sugar diagnostic (Blood Glucose Test) stripIndications: Type 2 diabetes mellitus with complication, with long-term current use of insulin (HC) Test 2 times per day. Accu-chek meter and strips 100 Each 11/01/19 25 Active insulin glargine (U-100) (Lantus Solostar U-100 Insulin) 100 unit/mL (3 mL) penIndications:Ty pe 2 diabetes mellitus with complication, with long-term current use of insulin (HC) Inject 20 units subcutaneous once daily. Product desired: LANTUS SOLOSTAR 20 mL 3 11/01/19 25 Active ascorbic acid (vitamin C) (Vitamin C) 1,000 mg tablet Take 1,000 mg by mouth once daily. Active docosahexaenoic acid/epa (FISH OIL ORAL) Take 2,000 mg by mouth once daily. Active amLODIPine (NORVASC) 5 mg tabletIndications :Essential hypertension Take 1 Tablet (5 mg) by mouth once daily. 90 Tablet 3 11/28/19 25 Active CALCIUM CARBONATE/VITAMIN D3 (CALCIUM + D ORAL) Take by mouth once daily. 025 Discontin ued(*Shaylee ent states no longer taking) COMP-AIR NEBULIZER COMPRESSOR INHALE EVERY 4 HOURS NEEDED 05/11/19 20 025 Discontin ued(*Med complete/ Regimen complete/ Level of care change) albuterol-ipratro pium (DUONEB) (2.5-0.5 mg) in 3 mL NEBULIZATION solutionIndicatio ns:COPD mixed type (HC),Bronchiectas is, uncomplicated (HC) [The details of the medication are not available because there are pending changes by a home health clinician.] 1 box 3 11/02/19 20 025 Discontin ued(*Med complete/ Regimen complete/ Level of care change) amLODIPine (NORVASC) 10 mg tabletIndications :Essential hypertension Take 1 Tablet (10 mg) by mouth once daily. 90 Tablet 3 04/16/20 24 025 Discontin ued(Reord er (E-cancel not sent)) Active Problems Problem Noted Date Diagnosed Date Stage 3a chronic kidney disease 10/31/2024 Depression, recurrent 02/22/2022 Aortic heart murmur 02/18/2021 Overview (02/18/2021): Mild stenosis of aortic valve on Echo 2019 ([facility]) Basal cell carcinoma 06/16/2020 Overview (12/04/2020): 06/12/20 [...] mixed type 03/21/2016 Overview (03/21/2016): Spirometry through banking services officer: 02/2016: FVC: FVC 50% at 3.02. FEV1 [...] Encounters Date Type Department Care Team Description 12/07/2024 12:00 PM CDT Home Care Visit [address] [address] Shelly Browning, OT OT - HOME VISIT 12/07/2024 Home Care Visit [address] [address] Shelly Browning, OT CARE TRANSITION NOTE 12/07/2024 Nurse Triage [place] [address] [place] [address] Laz Walter MD Low Blood Pressure 12/05/2024 1:00 PM CDT Home Care Visit [address] [address] Kaylee Rocha RN SN - HOME VISIT 12/04/2024 11:00 AM CDT Home Care Visit [address] [address] Cheryl Huber MSW SOFTWARE SUPPORT TECHNICIAN - HOME VISIT 12/04/2024 10:00 AM CDT Home Care Visit [address] [address] Dannie Yost, PT PT - HOME VISIT 12/03/2024 10:00 AM CDT Home Care Visit [address] [address] Krysten Orona DIE OUT WORKER - HOME VISIT 11/30/2024 11:00 AM CDT Home Care Visit [address] [address] Dannie Yost, PT PT - INITIAL ASSESSMENT 11/30/2024 5:00 AM CDT Home Care Visit [address] [address] Shelly Browning, OT OT - INITIAL ASSESSMENT 11/27/2024 11:30 AM CDT Home Care Visit [address] [address] Cheryl Huber MSW SOFTWARE SUPPORT TECHNICIAN - INITIAL ASSESSMENT 11/27/2024 Home Care Visit [address] [address] Ca Thomason, RN CARE COORDINATION 11/27/[address] [address] Laz Walter MD Questions 11/22/2024 12:30 PM CDT Home Care Visit [address] [address] Ca Thomason, RN SN - OASIS START OF CARE 11/22/2024 Plan of Care Documentation [address] [address] 11/22/[address] [address] Ca Thomason, health coach (meds/orders/med interaction) 11/21/2024 Home Care Visit [address] [address] Nyasia Hodges RN CARE COORDINATION 11/20/2024 Patient Outreach [facility] Care Management - Care Management Navigation/[facility] [address] [place] [address] Magalis Garrett, [facility] Care Management Intake (Social work care management intake outreach./) 11/13/[address] [address] Laz Walter MD Referral 11/02/[address] [address] Laz Walter MD Refill Request (pota chloride) 10/31/2024 9:35 AM CDT Office Visit [address] [address] Laz Walter MD Hospital F/U (Patient went in for a blood sugar of 28 and altered mental status) 10/31/2024 Telephone [facility] [address] [address] Laz Walter MD Results 10/31/[address] [address] Laz Walter MD Medication Management (insulin glargine (U-100) (Lantus Solostar U-100 Insulin) 100 unit/mL (3 mL) pen ) 10/31/[address] [address] Laz Walter MD Refill Request (potassium chloride) 10/31/2024 Travel 10/30/[address] [address] Laz Walter MD Refill Request ((Blood Glucose Test) strip, blood-glucose meter) 10/26/2024 Orders Only [facility] Scanner 1 scan: (1-Ord) 10/26/2024 10/25/[address] [address] Laz Walter MD Refill Request (Furosemide) 09/13/[address] [address] Laz Walter MD Refill Request (Furosemide) from Last 3 Months Immunizations Immunization Administration Dates Next Due AMB Influenza, IIV4 PF (=>6 mos Flulaval,Fluzone Fluarix)(Flu Clinic Only) 01/23/2020 COVID-19 vaccine (Moderna 10 0mcg/0.5mL) PF, MDV 07/17/2021 COVID-19 vaccine (Pfizer-Bio NTech 30mcg/0.3mL) PF, MDV 01/21/2021,06/17/2020,05/27/2020 Influenza A (H1N1), Inactiva john (Age >=3 Years) 04/30/2009 Influenza, High-dose Inactivated 01/02/2024,01/17,02/03/2015 Influenza, High-dose Quadriv alent Inactivated 01/07/2023,01/20/2022,01/21/2021 Influenza, IIV3 (Age >=3 years) 02/03/2011,01/06 Influenza, Inactivated IIV3 (Age 65+ Years) Preserv Free 02/01/2019,02/13/2018,01/06/2017 Pneumococcal Poly,23-Valent (Pneumovax) 07/18/19 22,11/16/2002,08/10/2000 Pneumococcal conj 13-Valent (Prevnar 13) 015 RSV, [...] on file Legal Sex Female 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 Gender Identity Not on file Sexual Orientation Not on file Occupation Industry Job Start Date Job End Date retired Not on file Not on file Not on file Obstetrics History Last Filed Vital Signs Vital Sign Reading Time Taken Comments Blood Pressure 82/38 12/07/2024 12:14 PM CDT Pulse 60 12/07/2024 12:03 PM CDT Temperature 36.6 C (97.8 F) 12/07/2024 12:03 PM CDT Respiratory Rate 17 12/07/2024 12:03 PM CDT Oxygen Saturation 95% 12/07/2024 12:03 PM CDT 1L at rest Inhaled Oxygen Concentration - - Weight 73.5 kg (162 lb) 11/22/2024 1:23 PM CDT Height 167.6 cm (5' 6) 11/22/2024 1:23 PM CDT Body Mass Index 26.15 11/22/2024 1:23 PM CDT Plan of Treatment Upcoming Encounters Date Type Department Care Team (Late st Contact Info) Description 12/10/2024 10:00 AM CDT Home Care Visit [address] [address] Krysten Orona 12/11/2024 10:00 AM CDT Home Care Visit [address] [address] Shelly Browning, OT [address] [place] [address] 12/12/2024 10:30 AM CDT Home Care Visit [address] [address] Dannie Yost, PT [address] [place] [address] 12/12/2024 12:00 PM CDT Home Care Visit [address] [address] Kaylee Rocha, RN [address] [place] [address] 12/17/2024 1:00 AM CDT Home Care Visit [address] [address] Krysten Orona 12/18/2024 3:00 AM CDT Home Care Visit [address] [address] Dannie Yost, PT [address] [place] [address] 12/19/2024 4:00 AM CDT Home Care Visit [address] [address] Kaylee Rocha, MEGAN [address] [place] [address] 12/20/2024 2:00 AM CDT Home Care Visit [address] [address] Shelly Browning, OT [address] [place] [address] Health Maintenance Due Date Last Done Comments COVID-19 vaccine series ( season) 2024 01/02/2024, 01/28/2023, 01/20/2022, Additional history exists Influenza Vaccine (#1) 2024 , 01/23/2020, 02/01/2019, Additional history exists BMI (ht and wt [...] Procedure Name Priority Date/Time Associated Diagnosis Comments HEMOGLOBIN A1C MONITORING (POCT) Routine 10/31/2024 10:22 AM CDT Stage 3a chronic kidney disease (HC) Type 2 diabetes mellitus with complication, with long-term current use of insulin (HC) Hypoglycemia BASIC METABOLIC PANEL Routine 10/31/2024 10:22 AM CDT Stage 3a chronic kidney disease (HC) Hypoglycemia SCAN-ELECTROCARDIOG HEATHER EKG 10/26/2024 12:00 AM CDT XR DXA BONE DENSITY 2 SITES AXIAL Routine 03/15/2017 10:44 AM NURSERY TEACHER Osteoporosis, unspecified osteoporosis type, unspecified pathological fracture presence from Last 3 Months or Most Recently Relevant to Health Maintenance Results * HEMOGLOBIN A1C MONITORING (POCT) (10/31/2024 10:22 AM CDT) POC HEMOGLOBIN A1C 5.9 <6.0 % OF TOTAL HGB 10/31/2024 10:44 AM CDT [facility] Comment: Any point of care results exhibiting inconsistency with the patient's clinical status should be repeated using a different testing method. Blood BLOOD SPECIMEN / Unknown [facility] / Unknown 10/31/2024 10:22 AM CDT 10/31/2024 10:22 AM CDT Laz Walter MD CHEMISTRY Final R esult [facility] [address] [place] [address], [facility] [address] [place] [address] * (ABNORMAL) BASIC METABOLIC PANEL (10/31/2024 10:22 AM CDT) Pathologist [facility] SODIUM 137 135 - 146 mmol/L 11/01/2024 3:34 AM CDT [facility] POTASSIUM 3.8 3.5 - 5.3 mmol/L 11/01/2024 3:34 AM CDT [facility] CARBON DIOXIDE 36(H) 20 - 32 mmol/L 11/01/2024 3:34 AM CDT [facility] GLUCOSE 100(H) 65 - 99 mg/dL 11/01/2024 3:34 AM CDT [facility] Comment: Fasting reference interval For someone without known diabetes, a glucose value between 100 and 125 mg/dL is consistent with prediabetes and should be confirmed with a follow-up test. CALCIUM 9.3 8.6 - 10.4 mg/dL 11/01/2024 3:34 AM CDT [facility] CREATININE 0.98(H) 0.60 - 0.95 mg/dL 11/01/2024 3:34 AM CDT [facility] BUN/CREATININE RATIO 15 6 - 22 (calc) 11/01/2024 3:34 AM CDT [facility] EGFR 56(L) > OR = 60 mL/min/1. 73m2 11/01/2024 3:34 AM CDT [facility] UREA NITROGEN (BUN) 15 7 - 25 mg/dL 11/01/2024 3:34 AM CDT [facility] ELECTROLYTE BALANCE 9 7 - 17 mmol/L (calc) 11/01/2024 3:34 AM CDT [facility] CHLORIDE 92(L) 98 - 110 mmol/L 11/01/2024 3:34 AM CDT [facility] Blood BLOOD SPECIMEN / Unknown [facility] / Unknown 10/31/2024 10:22 AM CDT 10/31/2024 10:22 AM CDT Laz Walter MD CHEMISTRY Final R esult [facility] [place] [address] [place] [address], * SCAN-ELECTROCARDIOGRAM EKG (10/26/2024 12:00 AM CDT) us Scanner OTHER Final Result * XR DXA BONE DENSITY 2 SITES AXIAL (03/15/2017 10:44 AM NURSERY TEACHER) Anatomical Region Laterality Modality Spine, HIPS, HIPL, HIPR Other 03/15/2017 10:4 4 AM NURSERY TEACHER Impressions 03/15/2017 1:08 PM NURSERY TEACHER IMPRESSION: 1. Normal bone mineral density of the lumbar spine. 2. Normal bone mineral density of the right and left femoral necks. RECOMMENDATIONS: Typical preventive recommendations include total daily calcium intake (diet and supplement) of 1500 mg, daily vitamin D intake of 400-800 IU, and regular weight-bearing exercise, in the appropriate clinical setting. Narrative 03/15/2017 1:08 PM NURSERY TEACHER BONE DENSITY (DEXA) 03/15/2017 10:44 AM HISTORY: Postmenopausal female with history of asthma or emphysema taking calcium. COMPARISON: 05/09/2014 and 11/09/2002. TECHNIQUE: The study was performed using DEXA in the AP lumbar spine and AP femur using a [employer] C. FINDINGS: Using DEXA, the results were [...] lumbar spine and AP femur using a [employer] C. FINDINGS: Using DEXA, the results [...] in the appropriate clinical setting. us Coleman Arvizu MD [employer] Final Result from Last 3 Months or Most Recently Relevant to Health Maintenance Insurance [facility] MR [facility] PPS Care Teams Tile Burner Relationship Specialty [place] [address] [place] [address] PCP - General Family Practice 02/13/18 [facility] [place] [address] [place] [address] 11/20/24
--- NOTE | 2024-12-07 13:26 | ED.GENADULT ---
HPI - General Adult General Chief complaint: Dizziness/Vertigo Stated complaint: feels lightheaded Time Seen by Provider: 12/07/24 13:20 History of Present Illness HPI narrative: Pt brought by [facility]. Per EMS, OT was visiting pt at home and found pt BP to be in the low 90's and called EMS. BP improved upon EMS arrival. Pt also has intermittent dizziness which has been ongoing for years. Pt on 1L O2 at home chronically for COPD. Pt has no complaints and does not particularly want to be here . Pt has memory issues but lives in Independent living facility with who is usually helps provide care for her. is currently in [facility] after a hip injury and so pt has been on her own in apartment for 3 weeks, family checks on her daily. Pt is diabetic and administers her own insulin. BG 256 per EMS and pt just had a meal. 89-year-old woman presenting to the emergency department via EMS with daughter I believe with concern of low blood pressure. OT had been visiting, it is my understanding to do cognitive evaluation, and on blood pressure checks noticed systolic to be in the low 90s. Kelsey maintains that she feels fine. No chest pain or worsening shortness of breath. No fever. No dysuria. No frequency. She does have COPD and is managed on home O2. Has managed to continue to live rather independently. Blood sugar reported 256 per EMS in the setting of diabetes. Daughter reports in the 180s. Does have a history of chronic intermittent dizziness or lightheadedness; it is hard for me to clarify in this interview. She denies feeling that way currently. I do note pulse to be bradycardic with rather normal blood pressure on arrival. She does take carvedilol. There are some memory issues the challenging this interview a little bit. Related Data Home Medications ?Medication ?Instructions ?Recorded ?Confirmed albuterol sulfate 90 mcg/actuation 1 - 2 puff inhalation Q4H PRN 10/26/24 10/26/24 aerosol inhaler dyspnea amlodipine 10 mg tablet 10 mg PO DAILY 10/26/24 10/26/24 blood sugar diagnostic (OneTouch 10/26/24 10/26/24 Verio test strips) carvedilol 25 mg tablet 25 mg PO BID 10/26/24 10/26/24 fluticasone 250 mcg-salmeterol 50 inhalation BID 10/26/24 mcg/dose blistr powdr for inhalation furosemide 20 mg tablet 20 mg PO Q1D 10/26/24 10/26/24 glipizide 5 mg tablet 5 mg PO DAILY 10/26/24 10/26/24 hydrochlorothiazide 25 mg tablet 25 mg PO DAILY 10/26/24 10/26/24 insulin glargine 100 unit/mL (3 30 - 40 unit subcut DAILY 10/26/24 10/26/24 mL) subcutaneous pen (Lantus Solostar U-100 Insulin) lancets 33 gauge (OneTouch Delica 10/26/24 10/26/24 Plus Lancet) lisinopril 40 mg tablet 40 mg PO DAILY 10/26/24 10/26/24 metformin 1,000 mg tablet 1,000 mg PO BID 10/26/24 10/26/24 sertraline 25 mg tablet 25 mg PO DAILY 10/26/24 10/26/24 simvastatin 20 mg tablet 20 mg PO QPM 10/26/24 10/26/24 Previous Rx's ?Medication ?Instructions ?Recorded potassium chloride 10 mEq 10 meq PO BID #30 tabs 10/26/24 tablet,extended release Allergies Allergy/AdvReac Type Severity Reaction Status Date / Time amoxicillin Allergy Verified 10/26/24 20:23 cephalexin Allergy Verified 10/26/24 20:23 fenofibrate (From Tricor) Allergy Verified 10/26/24 20:23 gemfibrozil (From Lopid) Allergy Verified 10/26/24 20:23 levofloxacin Allergy Verified 10/26/24 20:23 Penicillins Allergy Verified 10/26/24 20:23 [id number] Reductase Allergy Verified 10/26/24 20:23 Inhibitor Sulfa (Sulfonamide Allergy Verified 10/26/24 20:23 Antibiotics) Review of Systems Status of ROS: Reports: 6 or more systems reviewed and unremarkable except as noted in History and below PFSH PFS Social History Smoking Status: Unknown if ever smoked Exam Narrative: Exam Narrative: Very pleasant. NAD. Head is atraumatic. Cranial nerves 2-12 intact. Pupils are equal and appropriately reactive. Eyes are bright. Neck is supple. No nystagmus. Rotational movement of her head does not elicit reproduction or dizziness. She is moving all extremities without difficulty. Well-perfused. No peripheral edema. Heart in slower rate and regular rhythm with trace systolic murmur. Const: Vital Signs, click to edit/add: Vital Signs - 24 hr 12/07/24 13:13 12/07/24 13:16 12/07/24 13:22 Temperature 97.5 F L Pulse Rate 55 L Pulse Rate [Pulse Oximeter] 54 L Pulse Rate [orthos tatic lying] Pulse Rate [orthos tatic sitting] Pulse Rate [orthos tatic standing] Respiratory Rate 24 30 H Blood Pressure Blood Pressure [Ri ght Upper Arm] 140/55 H Blood Pressure [or thostatic lying] Blood Pressure [or thostatic sitting] Blood Pressure [or thostatic standing ] Pulse Oximetry 93 91 93 Oxygen Delivery Me thod Nasal Cannula Oxygen Flow Rate 1 12/07/24 13:22 12/07/24 13:30 12/07/24 13:32 Temperature Pulse Rate 60 57 L Pulse Rate [Pulse Oximeter] Pulse Rate [orthos tatic lying] Pulse Rate [orthos tatic sitting] Pulse Rate [orthos tatic standing] Respiratory Rate 18 17 Blood Pressure 145/56 H Blood Pressure [Ri ght Upper Arm] Blood Pressure [or thostatic lying] Blood Pressure [or thostatic sitting] Blood Pressure [or thostatic standing ] Pulse Oximetry 93 92 91 Oxygen Delivery Me thod Nasal Cannula Oxygen Flow Rate 1 12/07/24 13:45 12/07/24 14:00 12/07/24 14:02 Temperature Pulse Rate 57 L 60 64 Pulse Rate [Pulse Oximeter] Pulse Rate [orthos tatic lying] Pulse Rate [orthos tatic sitting] Pulse Rate [orthos tatic standing] Respiratory Rate 13 13 16 Blood Pressure 156/57 H Blood Pressure [Ri ght Upper Arm] Blood Pressure [or thostatic lying] Blood Pressure [or thostatic sitting] Blood Pressure [or thostatic standing ] Pulse Oximetry 91 91 91 Oxygen Delivery Me thod Oxygen Flow Rate 12/07/24 14:02 12/07/24 14:15 12/07/24 14:31 Temperature Pulse Rate 64 57 L 55 L Pulse Rate [Pulse Oximeter] Pulse Rate [orthos tatic lying] Pulse Rate [orthos tatic sitting] Pulse Rate [orthos tatic standing] Respiratory Rate 16 23 26 H Blood Pressure 156/57 H Blood Pressure [Ri ght Upper Arm] Blood Pressure [or thostatic lying] Blood Pressure [or thostatic sitting] Blood Pressure [or thostatic standing ] Pulse Oximetry 91 91 91 Oxygen Delivery Me thod Oxygen Flow Rate 12/07/24 14:35 12/07/24 14:36 12/07/24 14:40 Temperature Pulse Rate 54 L 51 L 57 L Pulse Rate [Pulse Oximeter] Pulse Rate [orthos tatic lying] Pulse Rate [orthos tatic sitting] Pulse Rate [orthos tatic standing] Respiratory Rate 13 11 L 12 Blood Pressure 178/71 H 176/75 H 190/76 H Blood Pressure [Ri ght Upper Arm] Blood Pressure [or thostatic lying] Blood Pressure [or thostatic sitting] Blood Pressure [or thostatic standing ] Pulse Oximetry 94 96 93 Oxygen Delivery Me thod Oxygen Flow Rate 12/07/24 14:45 12/07/24 14:46 12/07/24 15:00 Temperature Pulse Rate 52 L 57 L Pulse Rate [Pulse Oximeter] Pulse Rate [orthos tatic lying] 55 L Pulse Rate [orthos tatic sitting] 54 L Pulse Rate [orthos tatic standing] 57 L Respiratory Rate 13 7 L Blood Pressure Blood Pressure [Ri ght Upper Arm] Blood Pressure [or thostatic lying] 190/76 H Blood Pressure [or thostatic sitting] 176/75 H Blood Pressure [or thostatic standing ] 178/71 H Pulse Oximetry 99 95 Oxygen Delivery Me thod Oxygen Flow Rate 12/07/24 15:02 Temperature Pulse Rate Pulse Rate [Pulse Oximeter] Pulse Rate [orthos tatic lying] Pulse Rate [orthos tatic sitting] Pulse Rate [orthos tatic standing] Respiratory Rate 29 H Blood Pressure 187/102 H Blood Pressure [Ri ght Upper Arm] Blood Pressure [or thostatic lying] Blood Pressure [or thostatic sitting] Blood Pressure [or thostatic standing ] Pulse Oximetry Oxygen Delivery Me thod Oxygen Flow Rate Documenting provider has reviewed patient's vital signs: yes Course Vital Signs Vital signs: Initial Vital Signs Temperature 97.5 F L 12/07/24 13:13 Temperature Source Temporal Artery Scan 12/07/24 13:13 Pulse Rate 54 L 12/07/24 13:13 Respiratory Rate 24 12/07/24 13:13 Blood Pressure 140/55 H 12/07/24 13:13 Blood Pressure Mean 83 12/07/24 13:13 Blood Pressure Position Supine 12/07/24 13:13 Pulse Oximetry 93 12/07/24 13:13 Oxygen Delivery Method Nasal Cannula 12/07/24 13:13 Oxygen Flow Rate 1 12/07/24 13:13 Vital Signs Temperature 97.5 F L 12/07/24 13:13 Pulse Rate 54 L 12/07/24 13:13 Respiratory Rate 24 12/07/24 13:13 Blood Pressure 140/55 H 12/07/24 13:13 Pulse Oximetry 93 12/07/24 13:13 Oxygen Delivery Method Nasal Cannula 12/07/24 13:13 Oxygen Flow Rate 1 12/07/24 13:13 Temperature 97.5 F L 12/07/24 13:13 Pulse Rate 57 L 12/07/24 15:00 Respiratory Rate 29 H 12/07/24 15:02 Blood Pressure 187/102 H 12/07/24 15:02 Pulse Oximetry 95 12/07/24 15:00 Oxygen Delivery Method Nasal Cannula 12/07/24 13:22 Oxygen Flow Rate 1 12/07/24 13:22 Medical Decision Making MDM Narrative Medical decision making narrative: At this point given chronicity of some of these complaints and good vitals on arrival, I would continue to monitor. EKG. Watch for arrhythmia. Could check a urinalysis. Check orthostatics. Does not appear to have source of infection at this time. On quality assurance monitor body during time in the emergency department without event. Orthostatics were done were normal other than subjective dizziness. Carvedilol could certainly contribute to sense of dizziness or lightheadedness Urinalysis ultimately was relatively unremarkable. Without specific UTI symptoms I would wait for urine culture results before treating. Stable vitals and no event on monitor during time of observation. Thankfully your blood pressures have looked quite good here. Your heart rate has remained consistently slower which might be related to 1 of the medications you take called carvedilol. Your urinalysis is just resulted and while it is not normal entirely, I do not think that it represents a urinary tract infection; possibly contaminated. We will culture it though and give you a call if anything more needs to be done. Continue to take care with transitions given your history of dizziness/lightheadedness. Be seen for worsening persistent shortness of breath, new and focal weakness, marked worsening of your dizziness/lightheadedness, fever. Medical Records Medical records reviewed: Yes I reviewed the patient's medical records Lab Data Lab results reviewed: Yes I reviewed the patient's lab results Labs: Lab Results 12/07/24 Range/Units 14:21 Urine Color Dark yellow (Yellow) Urine Appearance Clear (Clear) Urine pH 6.0 (5.0-8.5) Ur Specific Forrest 1.015 (1.000-1.030) Urine Protein 1+ A (Negative) Urine Glucose (UA) Negative (Negative) Urine Ketones 1+ A (Negative) Urine Blood Negative (Negative) Urine Nitrite Negative (Negative) Urine Bilirubin 1+ A (Negative) Urine Urobilinogen 0.2 (0.2-1.0) Ur Leukocyte Esterase Negative (Negative) Urine RBC 0-2 (0-2) Urine WBC 5-10 A (0-5) Ur Squamous Epith Cells Moderate A (None-Few) Urine Bacteria Few A (None) Fine Granular Casts Moderate A (None) ECG Data Attestation: I personally reviewed and interpreted this ECG as follows: (Sinus bradycardia at a rate of 58) Discharge Plan Discharge Clinical Impression: Blood pressure abnormally low Patient Disposition: Home w/ Parent or Adult Condition: Stable Additional Instructions: Thankfully your blood pressures have looked quite good here. Your heart rate has remained consistently slower which might be related to 1 of the medications you take called carvedilol. Your urinalysis is just resulted and while it is not normal entirely, I do not think that it represents a urinary tract infection; possibly contaminated. We will culture it though and give you a call if anything more needs to be done. Continue to take care with transitions given your history of dizziness/lightheadedness. Be seen for worsening persistent shortness of breath, new and focal weakness, marked worsening of your dizziness/lightheadedness, fever. Prescriptions: No Action fluticasone propion-salmeterol 250-50 mcg/dose blister with device INHALATION BID carvedilol 25 mg tablet 25 mg PO BID (DME) OneTouch Verio test strips Strip 1 strip MISCELLANEOUS BID amlodipine 10 mg tablet 10 mg PO DAILY simvastatin 20 mg tablet 20 mg PO QPM metformin 1,000 mg tablet 1,000 mg PO BID sertraline 25 mg tablet 25 mg PO DAILY hydrochlorothiazide 25 mg tablet 25 mg PO DAILY furosemide 20 mg tablet 20 mg PO Q1D albuterol sulfate 90 mcg/actuation HFA aerosol inhaler 1 - 2 puff INHALATION Q4H PRN (Reason: dyspnea) lisinopril 40 mg tablet 40 mg PO DAILY glipizide 5 mg tablet 5 mg PO DAILY insulin glargine [Lantus Solostar U-100 Insulin] 100 unit/mL (3 mL) insulin pen 30 - 40 unit subcut DAILY (DME) lancets [OneTouch Delica Plus Lancet] 33 gauge misc MISCELLANEOUS BID potassium chloride 10 mEq tablet extended release 10 meq PO BID Qty: 30 0RF Follow Up/Referrals: Provider,Not a Local [Primary Care Provider, Family Practice] Stand Alone Forms: MyHealth Info Instructions
[2024-12-07 14:48] LABS: Appearance Urine Clear (Clear)
== END 2024-12-07 15:15 | disposition home or self-care (01) ==
PROVIDERS: Emergency Provider Family Medicine
DX: I95.9 Hypotension, unspecified (principal); R42 Dizziness and giddiness
CPT/HCPCS: 81001; 87086; 93005; 94761; 99284